=== PATIENT | female | born 1985 | race Caucasian/White ===

== ENCOUNTER 2018-04-15 06:06 | Day surgery (SDC) | payer OTHER ==
[~2018-04-15] VITALS: Ht 170.2 cm; Wt 79.4 kg
[~2018-04-15 06:06] MED LIST: BUSP5TA PO; VALA1TAB2
[2018-04-15 06:35] LABS: HEMATOCRIT 39.2 % (36.0-47.0); HEMOGLOBIN 13.2 g/dl (12.0-15.5); MEAN CORPUSCULAR HEMOGLOBIN 30.4 pg (27.0-33.0); MEAN CORPUSCULAR HGB CONC 33.7 g/dl (32.0-36.5); MEAN CORPUSCULAR VOLUME 90.3 fl (80.0-96.0); PLATELET COUNT, AUTOMATED 278 10^3/uL (150-450); RED BLOOD COUNT 4.34 10^6/uL (4.00-5.40); WHITE BLOOD COUNT 4.9 10^3/uL (4.0-10.0)
[2018-04-15] MEDS ORDERED: LR 1,000 ML IV ONE (07:00)
[2018-04-15] MEDS ORDERED: ACETAMINOPHEN 650 MG SUPP PR ONE (07:00)
[2018-04-15 07:03] LABS: BLOOD UREA NITROGEN 15 MG/DL (7-18); CALCIUM LEVEL 8.9 MG/DL (8.5-10.1); CARBON DIOXIDE LEVEL 26 MEQ/L (21-32); CHLORIDE LEVEL 109 MEQ/L (98-107); CREATININE FOR GFR 0.79 MG/DL (0.55-1.30); GLOMERULAR FILTRATION RATE > 60.0 (>60); GLUCOSE, FASTING 107 MG/DL (70-100); HCG, SERUM QUANTITATIVE < 1.0 MIU/ML; POTASSIUM SERUM 3.8 MEQ/L (3.5-5.1); SODIUM LEVEL 142 MEQ/L (136-145)
[2018-04-15] MEDS ORDERED: ACETAMINOPHEN 650 MG SUPP As Ordered ONE (07:09)
[2018-04-15] MEDS ORDERED: BUPIVACAINE HCL 0.5% 10 ML VIAL As Ordered ONE (07:10)
[2018-04-15] MEDS ORDERED: PROPOFOL 200 MG/20 ML VIAL As Ordered ONE (07:15)
[2018-04-15] MEDS ORDERED: ONDANSETRON 4MG/2ML VIAL (J2405) As Ordered ONE (07:15)
[2018-04-15] MEDS ORDERED: dexameTHASONE 4 MG/ML 1ML VIAL (J1100) As Ordered ONE (07:15)
[2018-04-15] MEDS ORDERED: ROCURONIUM BROMIDE 50 MG/5 ML VIAL As Ordered ONE (07:15)
[2018-04-15] MEDS ORDERED: LIDOCAINE 2% INJ 100 MG/5 ML SDV (FOR ANES.) As Ordered ONE (07:15)
[2018-04-15] MEDS ORDERED: MIDAZOLAM INJ 2 MG/2 ML VIAL (J2250) As Ordered ONE (07:17)
[2018-04-15] MEDS ORDERED: fentaNYL 250 MCG/5 ML INJECTION (J3010) As Ordered ONE (07:17)
[2018-04-15] MEDS ORDERED: SEVOFLURANE INHAL SOLN 250 ML BTL As Ordered ONE (07:53)
[2018-04-15] MEDS ORDERED: NEOSTIGMINE 10 MG/10 ML VIAL (J2710) As Ordered ONE (08:05)
[2018-04-15] MEDS ORDERED: KETOROLAC 60 MG/2 ML VIAL (J1885) As Ordered ONE (08:05)
[2018-04-15] MEDS ORDERED: METOCLOPRAMIDE INJ 10MG/2ML VIAL (J2765) As Ordered ONE (08:05)
[2018-04-15] MEDS ORDERED: HYDROmorphone HCL 2 MG/ML 1ML VIAL (J1170) As Ordered ONE (08:05)
[2018-04-15] MEDS ORDERED: GLYCOPYRROLATE INJ 0.2 MG/ML 2 ML VIAL As Ordered ONE (08:05)
[2018-04-15] MEDS ORDERED: oxyCODONE 5MG TAB PO PRN (09:00)
[2018-04-15] MEDS ORDERED: LR 1,000 ML IV SCH (09:00)
[2018-04-15] MEDS ORDERED: fentaNYL 100 MCG/2 ML INJECTION (J3010) IV PRN (09:00)
[2018-04-15 10:25] VITALS: BP 128/62
--- NOTE | 2018-04-16 10:11 | RO ---
DATE OF PROCEDURE: 04/15/2018 PREOPERATIVE DIAGNOSIS: Satisfied parity. POSTOPERATIVE DIAGNOSIS: Satisfied parity. OPERATION PROPOSED: Laparoscopic bilateral salpingectomy. OPERATION PERFORMED: Laparoscopic bilateral salpingectomy. SURGEON: Dr. Harley James. ERGONOMICS CONSULTANT: [employer]se for retraction, extraction and visualization. ANESTHESIA: General plus local anesthetic for intraperitoneal procedures. ESTIMATED BLOOD LOSS: Less than 10 mL. After adequate time-out, prepped and draped in lithotomy position, Bland catheter in the bladder draining clear urine. Sequentials on board. No antibiotics required. A single tooth tenaculum was placed in the anterior lip of the cervix and a sponge forceps applied into the vagina. With a small subumbilical incision made, Veress needle was applied. 3.1 liters of CO2 to flow rate of 3 to a pressure 14. Direct entry into the abdomen. No evidence of perforation, hemorrhage or bleeding. Right upper quadrant was normal. Left upper quadrant was normal. Right round and left round ligament were normal. In the cul-de-sac, there was some suggestion of possibly endometriosis, although less than stage I. Both ovaries and tubes appeared to be normal to the fimbriated end. Two 5 mm ports were placed, one on either side and then with the harmonic scalpel picking up the left tube, we removed the left tube completely to the cornual end and that was taken out through the left port and sent to pathology under separate cover. Then we turned our attention to the right tube. That was removed with a Harmonic scalpel to the cornual end. That was taken out through the right port. Good hemostasis was reviewed and with instrument and pad count correct, the two 5 mm ports were removed under direct vision, deflated to 4 mm pressure. The mainstem port was removed. Subcuticular stitches and Marcaine 0.25% to all skin sites with skin tapes. The Bland catheter was removed. The single-tooth tenaculum was removed and the patient was sent to recovery in good condition.
== END 2018-04-15 10:32 | disposition home or self-care (01) ==
LOC: M SDC 06:06
PROVIDERS: ATTEND Obstetrics & Gynecology
DX: Z30.2 Encounter for sterilization (principal); G43.909 Migraine, unspecified, not intractable, without status migrainosus; R23.3 Spontaneous ecchymoses; F41.9 Anxiety disorder, unspecified; F32.9 Major depressive disorder, single episode, unspecified; J30.89 Other allergic rhinitis; Z79.899 Other long term (current) drug therapy; Z87.891 Personal history of nicotine dependence
CPT/HCPCS: 58661; 80048; 84702; 85027; 88302; J1100; J1170; J1885; J2250; J2405; J2710; J2765; J3010

== ENCOUNTER → 2019-06-10 | Outpatient (REF) | payer OTHER ==
[~2019-06-10] MED LIST changes: -VALA1TAB2; +VALA1TAB5
== END ==
LOC: M LAB REF 16:53
PROVIDERS: ATTEND Nurse Practitioner Family
DX: B35.3 Tinea pedis (principal)